=== PATIENT | female | born 1940 | race Caucasian/White ===

== ENCOUNTER 2016-12-07 19:20 | Emergency (ER) | payer MEDICARE ==
[2016-12-07 19:53] LABS: #Basophils 0.1 thou/uL (0.0-0.2); #Eosinphils 0.2 thou/uL (0.0-0.7); #Lymphocytes 1.5 thou/uL (1.20-3.40); #Monocytes 0.7 thou/uL (0.11-0.59); #Neutrophils 7.3 thou/uL (1.40-6.50); %Basophils 0.8 % (0.0-1.0); %Eosinophils 1.8 % (0.0-10.0); %Monocytes 7.5 % (0.0-10.0); Hematocrit 36.7 % (36.0-47.0); Mean Platelet Volume 9.7 fL (7.4-10.4); Red Blood Cell (RBC) Count 4.01 mill/uL (4.20-5.40); White Blood Cell (WBC) Count 9.8 thou/uL (4.8-10.8)
[2016-12-07 20:08] LABS: Digoxin 0.42 ng/mL (0.8-2.0)
[2016-12-07 20:10] LABS: ALT (SGPT) 16 U/L (0-55); AST (SGOT) 22 U/L (5-34); Alkaline Phosphatase 60 U/L (40-150); Anion Gap 17 mmol/L (10-20); BUN (Urea Nitrogen) 19 mg/dL (9.8-20.1); Bilirubin, Total 0.5 mg/dL (0.2-1.2); Calc. Creatinine Clearance 0 mL/min (70-130); Calcium 7.9 mg/dL (7.8-10.44); Carbon Dioxide 29 mmol/L (23-31); Chloride 99 mmol/L (98-107); Estimated GFR-MDRD 65; Globulin 3.9 g/dL (2.4-3.5); Protein, Total 8.1 g/dL (5.8-8.1)
[2016-12-07 20:15] LABS: Troponin I Less than 0.010 ng/mL (< 0.028)
[2016-12-07] MEDS ORDERED: Potassium Chloride 20 MEQ TAB ONE (20:18)
[2016-12-07 20:20] LABS: Prothrombin Time 14.7 SEC (12.0-14.7)
[2016-12-07] MEDS ORDERED: Potassium Chloride 20 MEQ/100 ML PREMIX BAG ONE (20:20)
[2016-12-08 02:46] LABS: Troponin I 0.022 ng/mL (< 0.028)
[2016-12-08 02:52] LABS: Anion Gap 14 mmol/L (10-20); Carbon Dioxide 29 mmol/L (23-31); Chloride 104 mmol/L (98-107)
[2016-12-08 08:56] LABS: Troponin I Less than 0.010 ng/mL (< 0.028)
== END 2016-12-08 15:20 | disposition home or self-care (01) ==
LOC: BURERS 19:20
DX: I48.91 Unspecified atrial fibrillation (principal); R55 Syncope and collapse; I50.9 Heart failure, unspecified; I25.119 Atherosclerotic heart disease of native coronary artery with unspecified angina pectoris; Z79.82 Long term (current) use of aspirin; Z79.899 Other long term (current) drug therapy
CPT/HCPCS: 36415; 80051; 80053; 80162; 82553; 83880; 84432; 84439; 84443; 84484; 85025; 85610; 86800; 93005; 96361; 96365; 96366; J3480

== ENCOUNTER 2017-06-06 10:15 | Outpatient (CLI) | payer MEDICARE ==
[2017-06-06 11:39] LABS: Free T4 (Free Thyroxine) 1.1 ng/dL (0.70-1.48); Thyroid Stimulating Hormone 24.349 uIU/mL (0.35-4.94)
== END 2017-06-06 10:16 | disposition home or self-care (01) ==
LOC: BURLAB 10:15
PROVIDERS: ATTEND Internal Medicine Endocrinology, Diabetes & Metabolism
DX: E89.0 Postprocedural hypothyroidism (principal); C73 Malignant neoplasm of thyroid gland
CPT/HCPCS: 36415; 84439; 84443

== ENCOUNTER 2018-06-14 07:58 | Outpatient (CLI) | payer MEDICARE ==
--- NOTE | 2018-06-14 15:09 | ULT ---
HEPATIC DOPPLER ULTRASOUND: Date: 06-14-18 Comparison: 10-24-17 FINDINGS: Ultrasonography of the right upper quadrant was performed for evaluation of the liver and surrounding area. The liver is mildly large measuring 17.7 cm in oblique sagittal length. Once again seen is a complex somewhat irregular cyst in the liver that has not changed since the prior study. Today it measures 6. 6 x 4.2 x 5.1 cm which is comparable. There is no abnormal flow internally. Portal venous flow was sampled in the main, right, and left portal veins and appears normal and towar ds the liver as expected. Flow in the hepatic veins was away from the liver as expected. Flow was doc umented in the hepatic artery, splenic artery and splenic vein. Thus, all flows were unremarkable. The spleen is enlarged measuring 15.3 cm in length. This actually is slightly smaller than it has bee n on some scans previously. The pancreas was unremarkable. The gallbladder has been surgically remove d. Common bile duct measures 1.2 cm in caliber which is upper normal to slightly enlarged in a post-c holecystectomy patient. The right kidney is 10.9 cm long and shows cortical thinning but no obstructi on or focal mass. The aorta was not imaged. IMPRESSION: 1. Hepatosplenomegaly. 2. 6.6 cm irregular cyst in the liver. It appears little different than the October study. 3. Normal hepatic blood flow dynamics. 4. Renal cortical thinning. POS: HOME
== END 2018-06-14 07:59 | disposition home or self-care (01) ==
LOC: BURULT 07:58
PROVIDERS: ATTEND Internal Medicine Gastroenterology
DX: K59.00 Constipation, unspecified (principal); K74.69 Other cirrhosis of liver; R16.2 Hepatomegaly with splenomegaly, not elsewhere classified; K76.89 Other specified diseases of liver
CPT/HCPCS: 76705

== ENCOUNTER 2019-01-24 08:35 | Outpatient (CLI) | payer MEDICARE ==
--- NOTE | 2019-01-24 18:22 | ULT ---
HEPATIC ULTRASOUND: 01/24/19 Ultrasonography of the right upper quadrant was performed and compared with a prior study dated . The liver again noted to be large, measuring 16.8 cm in oblique sagittal length. No dilated ducts wer e seen within the liver. Once again, there is an irregular complex cyst in the more medial portions o f the right lobe near the junction with the left lobe. It has been seen on prior studies. Today, it w as measured at a maximal length of 6.3 cm which is comparable to before. While it is mostly cystic, t here are some solid elements to it. The common bile duct measures 5 to 8 mm in caliber which is normal for a post cholecystectomy patient . The visible portions of the pancreas appear normal. The right kidney was 10.5 cm long and appeared normal except for thinning of the cortex. Finally, Doppler sampling of the hepatic portal vein reveal ed flow towards the liver as expected. IMPRESSION: 1. Hepatomegaly with normal hepatic blood flow dynamics. 2. Irregular complex cysts in the medial portion of the liver. Maximum length 6.2 cm. This is li ttle different than the 2018 ultrasound. 3. No acute right upper quadrant findings. POS: HOME
== END 2019-01-24 08:36 | disposition home or self-care (01) ==
LOC: BURULT 08:35
PROVIDERS: ATTEND Physician Assistant Medical
DX: K74.69 Other cirrhosis of liver (principal); R16.0 Hepatomegaly, not elsewhere classified; K76.89 Other specified diseases of liver
CPT/HCPCS: 76705

== ENCOUNTER 2019-03-02 11:14 | Emergency (ER) | payer MEDICARE | END 2019-03-02 11:45 | disposition home or self-care (01) | LOC: BURERS 11:14 | DX: K59.00 Constipation, unspecified (principal); I50.9 Heart failure, unspecified; I48.91 Unspecified atrial fibrillation; I25.10 Atherosclerotic heart disease of native coronary artery without angina pectoris; Z79.82 Long term (current) use of aspirin; Z79.899 Other long term (current) drug therapy | CPT/HCPCS: 99283 ==

== ENCOUNTER 2019-03-02 20:52 | Emergency (ER) | payer MEDICARE ==
[2019-03-02] MEDS ORDERED: Ondansetron ODT 4 MG TAB ONE (21:16)
[2019-03-02 21:55] LABS: Clarity Clear (Clear)
[2019-03-02 21:56] LABS: Leukocyte Small (Negative)
[2019-03-02 21:57] LABS: Bilirubin Negative (Negative); Blood, Urine Moderate (Negative); Glucose, Urine (Dipstick) Negative (Negative); Nitrite Negative (Negative); Protein, Urine (Dipstick) 100 mg/dL (Neg-Trace); Urobilinogen 0.2 mg/dL (0.2-1.0)
[2019-03-02 22:03] LABS: Bacteria/HPF 1+ HPF (None Seen); RBC/HPF 0-3 HPF (0-3); Squamous Epithelial 0-3 HPF (0-3); Transitional Epithelial 0-3 HPF (0-3); WBC/HPF 0-3 HPF (0-3)
== END 2019-03-02 23:10 | disposition home or self-care (01) ==
LOC: BURERS 20:52
DX: R33.9 Retention of urine, unspecified (principal); I25.10 Atherosclerotic heart disease of native coronary artery without angina pectoris; I48.91 Unspecified atrial fibrillation; I50.9 Heart failure, unspecified; Z79.899 Other long term (current) drug therapy; Z79.82 Long term (current) use of aspirin
CPT/HCPCS: 51702; 51798; 81003; 81015; Q0162

== ENCOUNTER 2019-03-05 08:41 | Emergency (ER) | payer MEDICARE | END 2019-03-05 11:42 | disposition home or self-care (01) | LOC: BURERS 08:41 | DX: R33.9 Retention of urine, unspecified (principal); Z46.6 Encounter for fitting and adjustment of urinary device; I25.10 Atherosclerotic heart disease of native coronary artery without angina pectoris; I48.91 Unspecified atrial fibrillation; I50.9 Heart failure, unspecified; Z79.899 Other long term (current) drug therapy; Z79.82 Long term (current) use of aspirin | CPT/HCPCS: 99283 ==

== ENCOUNTER 2019-05-08 15:31 | Outpatient (CLI) | payer MEDICARE ==
--- NOTE | 2019-05-08 18:12 | RAD ---
RIGHT HIP: No fracture, dislocation, or joint space narrowing was seen. Mild arthritic changes were seen. No b larry destructive lesions were apparent. IMPRESSION: No acute findings POS: HOME
== END 2019-05-08 15:32 | disposition home or self-care (01) ==
LOC: BURRAD 15:31
PROVIDERS: ATTEND Family Medicine
DX: M25.551 Pain in right hip (principal)

== ENCOUNTER 2019-05-15 16:47 | Emergency (ER) | payer MEDICARE | END 2019-05-15 17:30 | disposition home or self-care (01) | LOC: BURERS 16:47 | DX: S81.811A Laceration without foreign body, right lower leg, initial encounter (principal); I50.9 Heart failure, unspecified; I25.10 Atherosclerotic heart disease of native coronary artery without angina pectoris; I48.91 Unspecified atrial fibrillation; C73 Malignant neoplasm of thyroid gland; Z79.899 Other long term (current) drug therapy; Z79.01 Long term (current) use of anticoagulants; W55.03XA Scratched by cat, initial encounter | CPT/HCPCS: 12001 ==

== ENCOUNTER 2019-05-31 14:12 | Emergency (ER) | payer MEDICARE ==
[2019-05-31] MEDS ORDERED: traMADol HCl 50 MG TAB ONE (14:54)
[2019-05-31] MEDS ORDERED: predniSONE 20 MG TAB ONE (14:54)
== END 2019-05-31 15:19 | disposition home or self-care (01) ==
LOC: BURERS 14:12
DX: M54.41 Lumbago with sciatica, right side (principal); I25.118 Atherosclerotic heart disease of native coronary artery with other forms of angina pectoris; I49.9 Cardiac arrhythmia, unspecified; I48.91 Unspecified atrial fibrillation; Z85.850 Personal history of malignant neoplasm of thyroid; Z79.899 Other long term (current) drug therapy
CPT/HCPCS: 99283; J7512

== ENCOUNTER 2019-09-15 11:23 | Emergency (ER) | payer MEDICARE ==
--- NOTE | 2019-09-15 12:20 | CT ---
CT OF THE BRAIN WITHOUT CONTRAST: DATE: 09/15/2019. FINDINGS: Noncontrast CT was done following trauma. Axial slices were acquired followed by coronal and sagitta l reconstructions. The ventricles are normal in size and show no shift. No intracranial bleeding or extraaxial hematoma was seen. There are a few small areas of lucency in the deep white matter in the right posterior fr ontal-parietal region that could be chronic ischemic change or old lacunar infarct. There is no sign of traumatic change internally. The skull appears intact. The paranasal sinuses are clear, as are the mastoid air cells. The orbital rims appear intact. IMPRESSION: No acute traumatic findings. POS: HOME
--- NOTE | 2019-09-15 12:29 | CT ---
CT OF THE CERVICAL SPINE: DATE: 09/15/2019. FINDINGS: Spiral CT of the cervical spine was done following trauma. Axial slices were acquired followed by co olinda and sagittal reconstructions. No fracture or dislocation was seen at any level. There is disk space narrowing at C5-C6 an very lar ge anterior osteophytes are present at this level and actually fuse these 2 vertebrae anteriorly. Th e C1 to dens distance is normal and the soft tissues are normal in thickness. Findings by level foll ow: C1-C2: No acute findings. C2-C3: No acute findings. C3-C4: Mild bilateral foraminal narrowing due to osteophytes and facet arthritis. Arthritis is wors t on the left. C4-C5: Moderate bilateral foraminal narrowing, more so on the right than the left. C5-C6: Moderate bilateral foraminal narrowing, slightly tighter on the right than the left. C6-C7: Severe bilateral foraminal narrowing with prominent posterior osteophytes. No true central c anal stenosis. C7-T1: Mild bilateral foraminal narrowing due to osteophytes. T1-T2: No acute findings. The lung apices are clear and show no pneumothorax. The soft tissues of the neck were unremarkable. IMPRESSION: Extensive degenerative changes, but no acute traumatic findings. POS: HOME
== END 2019-09-15 12:10 | disposition home or self-care (01) ==
LOC: BURERS 11:23
DX: S00.83XA Contusion of other part of head, initial encounter (principal); I25.10 Atherosclerotic heart disease of native coronary artery without angina pectoris; I50.9 Heart failure, unspecified; I48.91 Unspecified atrial fibrillation; I49.9 Cardiac arrhythmia, unspecified; Z79.899 Other long term (current) drug therapy; W10.9XXA Fall (on) (from) unspecified stairs and steps, initial encounter
CPT/HCPCS: 70450; 72125; L0120

== ENCOUNTER 2019-09-17 10:53 | Emergency (ER) | payer MEDICARE ==
--- NOTE | 2019-09-17 11:32 | RAD ---
Exam: XR Wrist 3 Rt View STANDARD HISTORY: Pain in the region of the radial styloid process after a fall. COMPARISON: None FINDINGS: Vascular calcifications overlie the distal forearm and at the wrist. 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 No acute fracture, dislocation, or other acute osseous abnormality is identified. IMPRESSION: No acute osseous abnormality is identified. If patient's pain persists, follow-up imaging is advised.
== END 2019-09-17 11:55 | disposition home or self-care (01) ==
LOC: BURERS 10:53
DX: S63.501A Unspecified sprain of right wrist, initial encounter (principal); I25.10 Atherosclerotic heart disease of native coronary artery without angina pectoris; I48.91 Unspecified atrial fibrillation; I50.9 Heart failure, unspecified; Z79.899 Other long term (current) drug therapy; W18.30XA Fall on same level, unspecified, initial encounter